=== PATIENT | male | born 1985 ===

== ENCOUNTER → 2016-07-26 16:52 | Outpatient (CLI) | payer OTHER ==
[2016-07-26 20:10] LABS: HEMATOCRIT 45.6 % (42.0-54.0); HEMOGLOBIN 15.1 g/dL (13.5-17.5); MCH 28.9 pg (26.0-34.0); MCHC 33.1 g/dL (31.0-37.0); MCV 87.4 fL (80.0-100.0); PLATELET COUNT 248 10x3/uL (130-400); RBC 5.22 10x6/uL (4.20-6.10); RDW 13.7 % (11.5-14.5); WBC 15.5 10x3/uL (4.8-10.8)
[2016-07-26 20:25] LABS: ALBUMIN 3.8 g/dL (3.4-5.0); ALKALINE PHOSPHATASE 94 U/L (46-116); ALT (SGPT) 364 U/L (10-68); BILIRUBIN - TOTAL 0.39 mg/dL (0.2-1.3); C-REACTIVE PROTEIN 0.9 mg/dL (0.0-0.9); CALC OSMOLALITY 275 mosm/kg (275-300); CALCIUM 8.8 mg/dL (8.5-10.1); CARBON DIOXIDE 27.1 mmol/L (21.0-32.0); CHLORIDE - SERUM 102 mmol/L (98-107); GLUCOSE 78 mg/dL (74-106); POTASSIUM - SERUM 4.4 mmol/L (3.5-5.1); PROTEIN - SERUM 7.5 g/dL (6.4-8.2); SODIUM 139 mmol/L (136-145); UREA NITROGEN 9 mg/dL (7-18); eGFR NON AFRICAN AMERICAN > 90 mL/min (90-120)
[2016-07-26 20:33] LABS: APPEARANCE CLEAR (CLEAR); BILIRUBIN NEGATIVE (NEGATIVE); COLOR YELLOW (YELLOW); GLUCOSE NEGATIVE (NEGATIVE); KETONE NEGATIVE (NEGATIVE); LEUKOCYTE ESTERASE NEGATIVE (NEGATIVE); NITRITE NEGATIVE (NEGATIVE); PROTEIN NEGATIVE (NEGATIVE); SPECIFIC GRAVITY 1.015 (1.005-1.020); UROBILINOGEN NORMAL (NORMAL)
[2016-07-26 21:49] LABS: PLATELET ESTIMATE NORMAL
[2016-07-26 21:50] LABS: ERYTHROCYTE SEDIMENTATION RATE 18 mm/hr (0-15)
[2016-07-26 21:57] LABS: EOSINOPHILS 2 % (0-7); LYMPHOCYTES 62 % (15-50); MONOCYTES 2 % (2-11); NEUTROPHILS 34 % (40-80)
[2016-07-28 18:49] LABS: EBV - EARLY ANTIGEN AB IGG 46.3 U/mL (0.0-8.9); EBV VIRAL CAPSID AB IGM <36.0 U/mL (0.0-35.9)
[2016-08-03 14:25] LABS: F. TULARENSIS - IGG Negative (()); F. TULARENSIS - IGM Negative (())
== END | disposition home or self-care (01) ==
LOC: D.LABREF 16:52
PROVIDERS: Student in an Organized Health Care Education/Training Program
DX: R50.9 Fever, unspecified (principal)